=== PATIENT | male | born 1945 | race Caucasian/White ===

== ENCOUNTER 2024-05-19 14:30 | Outpatient (AMB) | payer MEDICARE, BC, SELFPAY ==
--- NOTE | 2024-05-19 14:57 | AM.OFFWIN_ITS ---
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 Patient Tobacco Use Status: Former Tobacco user Allergies No Known Allergies Allergy (Verified 05/19/24 15:00) Do you need a note to return to daycare/school/sports/work: No HPI HPI Comments History of Present Illness Details 79 y/o male patient who presents to the walk in clinic with c/o right ear blockage and pain since last week. He has tried flushing at home with Debrox and Hydrogen Peroxide with no relief. PFSH Social History Patient Tobacco Use Status: Former Tobacco user Review of Systems Const All systems reviewed & are unremarkable except as noted in HPI and below Physical Exam Vital Signs: Last Vital Signs Pulse 56 05/19/24 14:59 BP 132/68 05/19/24 14:59 Pulse Ox 97 05/19/24 14:59 Oxygen Delivery Method Room Air 05/19/24 14:59 BMI result Body Mass Index 31.2 Const General: cooperative and no acute distress Nutritional Appearance: obese Orientation/consciousness: patient oriented x3 HEENT Head: Yes normocephalic Ears: external ears normal and TM abnormal obstructed by cerumen (right worse than left) bilateral General nose exam: Normal external nose present Face and sinus: Yes sinuses nontender Mouth: moist mucous membranes Neuro General: patient oriented x3 Office Procedures Cerumen Removal From which ear canal was the cerumen removed: right Removal: irrigation Notes: patient tolerated procedure well [id number] Irrigation/Lavage Assessment & Plan Assessment & Plan (1) Cerumen impaction: Code(s): H61.20 - Impacted cerumen, unspecified ear Qualifiers: Laterality: right Qualified Code(s): H61.21 - Impacted cerumen, right e ar Plan: Ordered Ear Lavage in office. Unable to completely remove all the wax Advised Pt to continue with Debrox BID He may continue using Peroxide once a day He may benefit with seeing ENT Medications: New carbamide peroxide 6.5% (Debrox) 5 drps otic (ears) DAILY 7 days 30 mL 0RF H61.21 - Impacted cerumen, right ear Coding Level of Care Code New Pt Level 3 (06603) Diagnoses Impacted cerumen of right ear H61.21 Laterality: right CPT Codes Office Procedure - CPT: 03271-Aaw Irrigation/Lavage ([id number]) Time Spent (min) 15
[2024-05-19 14:59] VITALS: BP 132/68; PULSE 56; O2SAT 97; BMI 31.2
== END 2024-05-19 16:59 | disposition home or self-care (01) ==
PROVIDERS: Visit Provider Nurse Practitioner Family
DX: H61.21 Impacted cerumen, right ear (principal)

== ENCOUNTER → 2024-05-19 14:30 | Outpatient (BNVA) | payer MEDICARE, BC, SELFPAY | DX: H61.21 Impacted cerumen, right ear (principal) | CPT/HCPCS: 69209; 99202 ==